=== PATIENT | female | born 1930 | race Caucasian/White ===

== ENCOUNTER 2016-03-17 19:05 | Emergency (ER) | payer MEDICARE, OTHER ==
[~2016-03-17] VITALS: Ht 157.5 cm; Wt 92.0 kg
[~2016-03-17 19:05] MED LIST: Z.0.NO CURRENT MEDS
[2016-03-17 19:24] VITALS: BP 140/73; PULSE 95; RESP 18; TEMP 98.1; O2SAT 95
--- NOTE | 2016-03-17 21:37 | PD ---
HPI Chief Complaint: Edema Time Seen by Provider: 21:21 Travel History International Travel<30 days: No Contact w/Intl Traveler<30days: No Traveled to known affect area: No History of Present Illness HPI 85-year-old female complains of bilateral lower extremities swelling and weeping fluid. Patient states that the condition started about year and a half ago. Patient has been seen by local physician for this condition. Patient was put on HCTZ for short time without much success. Patient has history hypertension and left leg DVT. Patient's on Xarelto and lisinopril. Patient denies any fever chills. Patient denies any chest pain or shortness of breath. Patient with AD hose to lower extremity occasionally. Patient denies any recent injury. PFSH Past Medical History Hx Anticoagulant Therapy: Yes (XARELTO) Blood Disorders: No Cancer: No Cardiovascular Problems: Yes (HTN) Diminished Hearing: No Endocrine: No Glaucoma: No Genitourinary: No Hypertension: Yes Immune Disorder: No Musculoskeletal: No Neurologic: No Psychiatric: No Reproductive: No Respiratory: No Sickle Cell Disease: No Past Surgical History Abdominal Surgery: Yes (lap roderick) AICD: No Arteriovenous Shunt: No Cholecystectomy: Yes Insulin Pump: No Joint Replacement: No Pacemaker: No Social History Alcohol Use: No Tobacco Use: No Substance Use: No Allergies-Medications (Allergen,Severity, Reaction): Coded Allergies: No Known Allergies (Verified , 03/17/16) Reported Meds & Prescriptions Reported Meds & Active Scripts Active Reported Xarelto (Rivaroxaban) 10 Mg Tab 10 Mg PO DAILY Lisinopril 10 Mg Tab 10 Mg PO DAILY Review of Systems General / Constitutional: No: Fever Eyes: No: Visual changes HENT: No: Headaches Cardiovascular: No: Chest Pain or Discomfort Respiratory: No: Shortness of Breath Gastrointestinal: No: Abdominal Pain Genitourinary: No: Dysuria Musculoskeletal: Positive: Edema, No: Pain Skin: No Rash Neurologic: No: Weakness Psychiatric: No: Depression Endocrine: No: Polydipsia Hematologic/Lymphatic: No: Easy Bruising Physical Exam Narrative GENERAL: Well-nourished, well-developed patient. SKIN: Warm and dry. HEAD: Normocephalic. EYES: No scleral icterus. No injection or drainage. NECK: Supple, trachea midline. No JVD or lymphadenopathy. CARDIOVASCULAR: Regular rate and rhythm without murmurs, gallops, or rubs. RESPIRATORY: Breath sounds equal bilaterally. No accessory muscle use. GASTROINTESTINAL: Abdomen soft, non-tender, nondistended. MUSCULOSKELETAL: Patient had +2 pitting edema lower extremity. Mild redness associate with the skin in the lower extremity. Clear fluid weeping out of the skin lower extremity bilaterally. BACK: Nontender without obvious deformity. No CVA tenderness. Neurologic exam normal. Data Data Last Documented VS Vital Signs Date Time Temp Pulse Resp B/P Pulse Ox O2 Delivery O2 Flow Rate FiO2 03/17/16 21:45 97 Room Air 03/17/16 21:45 85 16 158/72 03/17/16 19:24 98.1 Orders Complete Blood Count With Diff (03/17/16 21:30) Comprehensive Metabolic Panel (03/17/16 21:30) B-Type Natriuretic Peptide (03/17/16 21:30) Urinalysis - C+S If Indicated (03/17/16 21:30) Chest, Single Ap (03/17/16 21:30) Iv Access Insert/Monitor (03/17/16 21:30) Ecg Monitoring (03/17/16 21:30) Oximetry (03/17/16 21:30) Furosemide Inj (Lasix Inj) (03/17/16 22:45) Potassium Chloride (Kcl) (03/17/16 22:45) Labs Laboratory Tests Test 03/17/16 21:45 White Blood Count 10.6 TH/MM3 Red Blood Count 4.22 MIL/MM3 Hemoglobin 12.7 GM/DL Hematocrit 39.4 % Mean Corpuscular Volume 93.4 FL Mean Corpuscular Hemoglobin 30.1 PG Mean Corpuscular Hemoglobin 32.2 % Concent Red Cell Distribution Width 15.1 % Platelet Count 238 TH/MM3 Mean Platelet Volume 8.5 FL Neutrophils (%) (Auto) 80.3 % Lymphocytes (%) (Auto) 7.8 % Monocytes (%) (Auto) 8.8 % Eosinophils (%) (Auto) 0.6 % Basophils (%) (Auto) 2.5 % Neutrophils # (Auto) 8.5 TH/MM3 Lymphocytes # (Auto) 0.8 TH/MM3 Monocytes # (Auto) 0.9 TH/MM3 Eosinophils # (Auto) 0.1 TH/MM3 Basophils # (Auto) 0.3 TH/MM3 CBC Comment AUTO DIFF Sodium Level 137 MEQ/L Potassium Level 3.7 MEQ/L Chloride Level 99 MEQ/L Carbon Dioxide Level 29.2 MEQ/L Anion Gap 9 MEQ/L Blood Urea Nitrogen 19 MG/DL Creatinine 0.73 MG/DL Estimat Glomerular Filtration 75 ML/MIN Rate Random Glucose 129 MG/DL Calcium Level 9.5 MG/DL Total Bilirubin 0.8 MG/DL Aspartate Amino Transf 27 U/L (AST/SGOT) Alanine Aminotransferase 29 U/L (ALT/SGPT) Alkaline Phosphatase 68 U/L B-Type Natriuretic Peptide 197 PG/ML Total Protein 7.8 GM/DL Albumin 3.4 GM/DL [facility] Medical Decision Making Medical Screen Exam Complete: Yes Emergency Medical Condition: Yes Interpretation(s) 22 27 PM. Chest x-ray shows mild CHF. BUN 19. Creatinine 0.73. 23:17 PM. CBC with WBC 10.6. 80 neutrophil. BNP 197. Differential Diagnosis Differential diagnosis including lymphedema, cellulitis, abscess, DVT, dependent edema. Narrative Course 85-year-old female with right lower extremity edema and fluid weeping out the skin. Patient states that the symptoms started about a year and half ago. Short course of HCTZ was given in the past without success. Patient has history of DVT and on Xarelto. Diagnosis Primary Impression: Lymphedema of both lower extremities Patient Instructions: General Instructions Additional Instructions: Keep legs elevated. AD hose stocking. Take Lasix as directed. Follow-up with personal physician in several days for electrolyte check. Return if worse. Med/Other Pt SpecificInfo: Prescription(s) given Scripts Sulfamethoxazole-Trimethoprim (Bactrim DS)800-160 Mg Tab1 Tab PO BID #14 TAB Ref 0 Prov:Kuldip Robison MD 03/17/16 Potassium Chloride ER (Potassium Chloride CR)10 Meq Tab10 Meq PO DAILY #7 TAB Prov:Kuldip Robison MD 03/17/16 Furosemide (Lasix)20 Mg Tab20 Mg PO DAILY #10 TAB Ref 0 Prov:Kuldip Robison MD 03/17/16 Disposition: 01 DISCHARGE HOME Condition: Stable Kuldip Robison MD Mar 17, 2016 21:37
[2016-03-17 21:45] VITALS: BP 158/72; PULSE 85; RESP 16; O2SAT 97
[2016-03-17 22:12] LABS: CHLORIDE 99 MEQ/L (98-107); POTASSIUM 3.7 MEQ/L (3.5-5.1); SODIUM (NA) 137 MEQ/L (136-145)
[2016-03-17 22:15] LABS: ANION GAP 9 MEQ/L (5-15); BICARBONATE 29.2 MEQ/L (21.0-32.0)
--- NOTE | 2016-03-17 22:15 | RADHPO ---
EXAM DATE/TIME: 03/17/2016 22:02 [facility] COMPARISON: No previous studies available for comparison. INDICATIONS : Short of breath MEDICAL HISTORY : Lower extremity edema SURGICAL HISTORY : Unknown ENCOUNTER: Initial ACUITY: 1 day PAIN SCORE: 0/10 LOCATION: Bilateral chest FINDINGS: Mild consolidation and small effusions seen of both bases. Heart size upper limits of normal to mildl y enlarged. No pneumothorax. Right greater than left chronic appearing arthropathy seen of the shoulders. CONCLUSION: Mild failure. Adi Javier MD on March 17, 2016 at 22:13 Board Certified Radiologist. This report was verified electronically.
[2016-03-17 22:16] LABS: BLOOD UREA NITROGEN 19 MG/DL (7-18)
[2016-03-17 22:19] LABS: ALT (GPT) 29 U/L (10-53); AST (GOT) 27 U/L (15-37); GLOMERULAR FILTRATION RATE 75 ML/MIN (>89)
[2016-03-17 22:20] LABS: TOTAL BILIRUBIN ADULT 0.8 MG/DL (0.2-1.0)
[2016-03-17 22:21] LABS: ALKALINE PHOSPHATASE 68 U/L (45-117)
[2016-03-17 22:38] LABS: AUTOMATED NEUTROPHIL # 8.5 TH/MM3 (1.8-7.7); BASOPHIL # 0.3 TH/MM3 (0-0.2); BASOPHIL % 2.5 % (0.0-2.0); EOSINOPHIL # 0.1 TH/MM3 (0-0.4); EOSINOPHIL % 0.6 % (0.0-4.0); HEMATOCRIT 39.4 % (35.0-46.0); LYMPH % 7.8 % (9.0-44.0); LYMPHOCYTE # 0.8 TH/MM3 (1.0-4.8); MEAN CELL VOLUME 93.4 FL (80.0-100.0); MEAN CORPUSCULAR HEMOGLOBIN 30.1 PG (27.0-34.0); MEAN CORPUSCULAR HGB CONC 32.2 % (32.0-36.0); MONO % 8.8 % (0.0-8.0); NEUT % 80.3 % (16.0-70.0); PLATELET COUNT 238 TH/MM3 (150-450); RED BLOOD COUNT 4.22 MIL/MM3 (4.00-5.30); RED CELL DISTRIBUTION WIDTH 15.1 % (11.6-17.2); WHITE BLOOD COUNT 10.6 TH/MM3 (4.0-11.0)
[2016-03-17] MEDS ORDERED: POTASSIUM CHLORIDE 20 MEQ CONTROLLED RELEASE TAB PO ONE (22:45)
[2016-03-17] MEDS ORDERED: FUROSEMIDE 20 MG/2 ML VIAL IV PUSH ONE (22:45)
[2016-03-17 22:48] LABS: HEMO FLAGS AUTO DIFF
[2016-03-17] MEDS ORDERED: XARE10TA PO (22:50)
[2016-03-17] MEDS ORDERED: LISI10TA3 PO (22:50)
[2016-03-17 23:19] LABS: PLATELET ESTIMATE SMEAR NORMAL (NORMAL); PLATELET MORPHOLOGY NORMAL (NORMAL); SCAN/DIFF AUTO DIFF CONFIRMED
[2016-03-17] MEDS ORDERED: FURO1TAB62 PO (23:25)
[2016-03-17] MEDS ORDERED: BACT800T5 PO (23:26)
[2016-03-17] MEDS ORDERED: POTA10TA8 PO (23:26)
[2016-03-18 00:54] VITALS: BP 157/72
== END 2016-03-18 00:56 | disposition home or self-care (01) ==
LOC: PHED 19:05
DX: R60.0 Localized edema (principal); Z79.01 Long term (current) use of anticoagulants; I10 Essential (primary) hypertension
CPT/HCPCS: 71010; 80053; 83880; 85025; 96374; 99284; J1940

== ENCOUNTER 2016-08-19 12:35 | Emergency (ER) | payer OTHER ==
[~2016-08-19] VITALS: Ht 157.5 cm; Wt 82.6 kg
[~2016-08-19 12:35] MED LIST changes: +BACT800T5 PO; +FURO1TAB62 PO; +LISI10TA3 PO; +POTA10TA8 PO; +XARE10TA PO; -Z.0.NO CURRENT MEDS
[2016-08-19 12:39] VITALS: BP 138/65; PULSE 99; RESP 16; TEMP 98; O2SAT 97
[2016-08-19 13:05] VITALS: RESP 16; O2SAT 97
[2016-08-19] MEDS ORDERED: CALC-187 PO (13:10)
[2016-08-19] MEDS ORDERED: FURO1TAB62 PO (13:10)
[2016-08-19] MEDS ORDERED: MULT1TAB46 PO (13:10)
[2016-08-19] MEDS ORDERED: SIMV20TA PO (13:10)
[2016-08-19] MEDS ORDERED: XARE20TA PO (13:10)
[2016-08-19] MEDS ORDERED: SODIUM CHLORIDE 0.9% FLUSH 10 ML FLUSH IV FLUSH PRN (13:15)
--- NOTE | 2016-08-19 13:17 | PD ---
HPI Chief Complaint: Pain: Acute or Chronic Time Seen by Provider: 13:02 Travel History International Travel<30 days: No Contact w/Intl Traveler<30days: No Traveled to known affect area: No History of Present Illness HPI 85-year-old female with history of bilateral lower extremity lymphedema, A. fib , DVT, on Xarelto, here with daughter for evaluation of left thigh pain and ecchymosis. 3 nights ago the patient reports feeling a pop in her left thigh. The next day she noticed the area of ecchymosis which seems to be getting larger. Pain in her left thigh is mild to moderate, worse with movement and palpation, completely resolves with rest. She is able to ambulate as usual. She reports history of limited range of motion and strength in the left leg. No other injuries. No chest pain or dyspnea. PFSH Past Medical History Hx Anticoagulant Therapy: Yes (XARELTO) Atrial Fibrillation: Yes Blood Disorders: No Cancer: No Cardiovascular Problems: Yes (CHOL) High Cholesterol: Yes Congestive Heart Failure: Yes Diabetes: No Diminished Hearing: No Deep Vein Thrombosis: Yes (left leg-calf area 2 yrs ago, Hx of PE) Endocrine: No Gastrointestinal Disorders: No Glaucoma: No Genitourinary: No Hypertension: Yes Immune Disorder: No Medical other: Yes (chronic edema to legs and feet) Musculoskeletal: No Neurologic: No Psychiatric: No Reproductive: No Respiratory: No Renal Failure: No (decreased renal function) Sickle Cell Disease: No Tetanus Vaccination: > 5 Years Influenza Vaccination: No ?: Not Menopausal: Yes Past Surgical History Abdominal Surgery: Yes (lap roderick) AICD: No Arteriovenous Shunt: No Cholecystectomy: Yes Insulin Pump: No Joint Replacement: No Pacemaker: No Other Surgery: Yes Social History Alcohol Use: No Tobacco Use: No Substance Use: No Allergies-Medications (Allergen,Severity, Reaction): Coded Allergies: No Known Allergies (Verified , 08/19/16) Reported Meds & Prescriptions Reported Meds & Active Scripts Active Reported Potassium Chloride ER (Potassium Chloride) 10 Meq Cap 10 Meq PO DAILY PRN Multi Vitamin Daily (Multiple Vitamin) 1 Tab Tab 1 Tab PO DAILY Calcium 500/Vitamin D3 (Calcium Carbonate-Cholecalciferol) Unknown Strength Tab Unknown Dose PO DAILY Simvastatin 20 Mg Tab 20 Mg PO HS Xarelto (Rivaroxaban) 20 Mg Tab 20 Mg PO HS Lasix (Furosemide) 20 Mg Tab 20 Mg PO DAILY PRN Lisinopril 10 Mg Tab 10 Mg PO DAILY Review of Systems Except as stated in HPI: all other systems reviewed are Neg Physical Exam Narrative GENERAL: Well-developed, well-nourished, awake, alert, comfortable, no acute distress. SKIN: Focused skin assessment warm/dry. Mid medial/posterior thigh with area of ecchymosis without induration. HEAD: Atraumatic. Normocephalic. EYES: Pupils equal and round. No scleral icterus. No injection or drainage. ENT: Mucous membranes pink and moist. NECK: Trachea midline. No JVD. CARDIOVASCULAR: Regular rate and rhythm. Bilateral dorsalis pedis pulses are brisk and equal. RESPIRATORY: No accessory muscle use. Clear to auscultation. Breath sounds equal bilaterally. MUSCULOSKELETAL: No obvious deformities. No clubbing. No cyanosis. Significant bilateral lower extremity nonpitting edema with skin exam as above. No open wounds or weeping. No warmth or erythema. Normal range of passive motion in flexion and extension of bilateral lower extremities. Normal range of active motion in the right lower extremity. Somewhat limited range of motion in left lower extremity which the patient states is usual for her. NEUROLOGICAL: Awake and alert. No obvious cranial nerve deficits. Motor grossly within normal limits. Normal speech. PSYCHIATRIC: Appropriate mood and affect; insight and judgment normal. Data Data Last Documented VS Vital Signs Date Time Temp Pulse Resp B/P Pulse Ox O2 Delivery O2 Flow Rate FiO2 08/19/16 13:45 98 16 136/56 97 Room Air 08/19/16 12:39 98.0 Orders Basic Metabolic Panel (Bmp) (08/19/16 13:14) Complete Blood Count With Diff (08/19/16 13:14) Prothrombin Time / Inr (Pt) (08/19/16 13:14) Act Partial Throm Time (Ptt) (08/19/16 13:14) Iv Access Insert/Monitor (08/19/16 13:14) Ecg Monitoring (08/19/16 13:14) Oximetry (08/19/16 13:14) Sodium Chloride 0.9% Flush (Ns Flush) (08/19/16 13:15) Femur (Ap & Lat/2vws) (08/19/16 ) Labs Laboratory Tests Test 08/19/16 13:40 White Blood Count 9.3 TH/MM3 Red Blood Count 3.58 MIL/MM3 Hemoglobin 11.1 GM/DL Hematocrit 33.0 % Mean Corpuscular Volume 92.3 FL Mean Corpuscular Hemoglobin 31.0 PG Mean Corpuscular Hemoglobin 33.6 % Concent Red Cell Distribution Width 13.8 % Platelet Count 160 TH/MM3 Mean Platelet Volume 8.7 FL Neutrophils (%) (Auto) 78.2 % Lymphocytes (%) (Auto) 7.6 % Monocytes (%) (Auto) 12.8 % Eosinophils (%) (Auto) 0.5 % Basophils (%) (Auto) 0.9 % Neutrophils # (Auto) 7.3 TH/MM3 Lymphocytes # (Auto) 0.7 TH/MM3 Monocytes # (Auto) 1.2 TH/MM3 Eosinophils # (Auto) 0.0 TH/MM3 Basophils # (Auto) 0.1 TH/MM3 CBC Comment DIFF FINAL Differential Comment Prothrombin Time 15.2 SEC Prothromb Time International 1.4 RATIO Ratio Activated Partial 32.8 SEC Thromboplast Time Sodium Level 136 MEQ/L Potassium Level 3.7 MEQ/L Chloride Level 99 MEQ/L Carbon Dioxide Level 25.3 MEQ/L Anion Gap 12 MEQ/L Blood Urea Nitrogen 18 MG/DL Creatinine 0.66 MG/DL Estimat Glomerular Filtration 85 ML/MIN Rate Random Glucose 110 MG/DL Calcium Level 8.8 MG/DL MDM Medical Decision Making Medical Screen Exam Complete: Yes Emergency Medical Condition: Yes Medical Record Reviewed: Yes Differential Diagnosis Ecchymosis, hematoma, muscular strain, anemia Narrative Course Vital signs reviewed. CBC shows WBC 9.3, hemoglobin 11.1, hematocrit 33, platelets 160. CBC and March of this year showed a hemoglobin of 2.7, hematocrit 39.4. BMP is unremarkable. PT is 15.2, PTT is 32.8, INR is 1.4. Left femur x-ray: No acute fracture. Prominent degenerative changes of the knee. Patient and the patient's daughter were made aware of all findings. The patient is resting comfortably. She likely has a small hematoma in her left thigh from a muscular strain/tear. There brisk bilateral dorsalis pedis pulses. No signs or symptoms of compartment syndrome. All compartments in left thigh are supple. Patient prefers to go home, and her daughter will take care of her at home. I had my shelter case manager discussed with the patient and the patient's daughter options for visiting home health. I offered to give the patient prescription for pain medication, however the patient declined, stating that she would like to use Tylenol for her pain. Patient is stable for discharge home with outpatient follow-up with her primary care physician this week. She was informed on when to return to the emergency department. She verbalizes understanding and agreement with plan. Diagnosis Primary Impression: Left thigh pain Additional Impression: Ecchymosis Referrals: Primary Care Physician 3 days Additional Instructions: Follow-up with your primary care physician this week. Return to the emergency department for worsening symptoms or any other concerns. Disposition: 01 DISCHARGE HOME Condition: Stable Tommy Cameron MD Aug 19, 2016 13:17
[2016-08-19] MEDS ORDERED: POTA10CA PO (13:20)
[2016-08-19 13:45] VITALS: BP 136/56; PULSE 98; RESP 16; O2SAT 97
[2016-08-19 13:47] LABS: AUTOMATED NEUTROPHIL # 7.3 TH/MM3 (1.8-7.7); BASOPHIL # 0.1 TH/MM3 (0-0.2); BASOPHIL % 0.9 % (0.0-2.0); EOSINOPHIL % 0.5 % (0.0-4.0); HEMO FLAGS DIFF FINAL; LYMPH % 7.6 % (9.0-44.0); LYMPHOCYTE # 0.7 TH/MM3 (1.0-4.8); MEAN CELL VOLUME 92.3 FL (80.0-100.0); MEAN CORPUSCULAR HGB CONC 33.6 % (32.0-36.0); MONO % 12.8 % (0.0-8.0); NEUT % 78.2 % (16.0-70.0); PLATELET COUNT 160 TH/MM3 (150-450); RED BLOOD COUNT 3.58 MIL/MM3 (4.00-5.30); RED CELL DISTRIBUTION WIDTH 13.8 % (11.6-17.2); WHITE BLOOD COUNT 9.3 TH/MM3 (4.0-11.0)
--- NOTE | 2016-08-19 13:47 | RADHPO ---
EXAM DATE/TIME: 08/19/2016 13:21 [facility] COMPARISON: No previous studies available for comparison. INDICATIONS : Left thigh pain; no known injury to leg. Patient states felt a pop when getting into bed 3 days ago. MEDICAL HISTORY : Deep venous thrombosis. SURGICAL HISTORY : None. ENCOUNTER: Initial ACUITY: 3 days PAIN SCORE: 10/10 LOCATION: Left femur. FINDINGS: Two view examination of the left femur demonstrates no evidence of fracture or dislocation. Degenerat tess changes of the knee. Calcified leiomyoma. Bony mineralization is normal. The soft tissue structu res are intact. CONCLUSION: No acute fracture. Prominent degenerative changes of the knee. Aneudy Lawson MD on August 19, 2016 at 13:44 Board Certified Radiologist. This report was verified electronically.
[2016-08-19 13:55] LABS: POTASSIUM 3.7 MEQ/L (3.5-5.1)
[2016-08-19 13:58] LABS: BICARBONATE 25.3 MEQ/L (21.0-32.0)
[2016-08-19 13:59] LABS: APTT (PATIENT) 32.8 SEC (24.3-30.1); INTERNATIONAL NORMALIZED RATIO 1.4 RATIO; PROTHROMBIN TIME - PATIENT 15.2 SEC (9.8-11.6)
== END 2016-08-19 14:51 | disposition home or self-care (01) ==
LOC: PHED 12:35
DX: M79.652 Pain in left thigh (principal); M79.81 Nontraumatic hematoma of soft tissue; I48.91 Unspecified atrial fibrillation; I10 Essential (primary) hypertension; E78.00 Pure hypercholesterolemia, unspecified; Z86.718 Personal history of other venous thrombosis and embolism; Z79.01 Long term (current) use of anticoagulants; Z86.711 Personal history of pulmonary embolism
CPT/HCPCS: 73552; 80048; 85025; 85610; 85730; 99284

== ENCOUNTER 2017-03-30 16:40 | Observation (INO) | payer OTHER ==
[~2017-03-30] VITALS: Ht 157.5 cm; Wt 89.7 kg
[~2017-03-30 16:40] MED LIST changes: -BACT800T5 PO; +CALC-187 PO; +MULT1TAB46 PO; +POTA10CA PO; -POTA10TA8 PO; +SIMV20TA PO; -XARE10TA PO; +XARE20TA PO
[2017-03-30 17:00] VITALS: BP 142/97; PULSE 87; RESP 16; TEMP 98.2; O2SAT 95
--- NOTE | 2017-03-30 17:01 | PD ---
HPI Chief Complaint: Generalized weakness Time Seen by Provider: 16:46 Travel History International Travel<30 days: No Contact w/Intl Traveler<30days: No History of Present Illness HPI 86yo F with PMH of afib, DVT on xarelto, bilateral lower extremity lymphadema presents to the ED with c/o generalized weakness for 10 days. Said she usually uses a walker but has been having more difficulty walking because her legs feels weak. Pt was getting out of the bathroom and her walker was stuck at the door and she pushed too hard and fell backwards. She said she did hit her head on the door but denies any LOC or headache. Denies any chest pain, sob, n/v, abdominal pain, decreased sensation. Said her legs have been more swollen in the last 10 days as well. PFSH Past Medical History Hx Anticoagulant Therapy: Yes (XARELTO) Atrial Fibrillation: Yes Blood Disorders: No Cancer: No Cardiovascular Problems: Yes (CHOL) High Cholesterol: Yes Congestive Heart Failure: Yes Diabetes: No Diminished Hearing: No Deep Vein Thrombosis: Yes (left leg-calf area 2 yrs ago, Hx of PE) Endocrine: No Gastrointestinal Disorders: No Glaucoma: No Genitourinary: No Hypertension: Yes Immune Disorder: No Musculoskeletal: No Neurologic: No Psychiatric: No Reproductive: No Respiratory: No Renal Failure: No (decreased renal function) Sickle Cell Disease: No Menopausal: Yes Past Surgical History Abdominal Surgery: Yes (lap roderick) AICD: No Arteriovenous Shunt: No Cholecystectomy: Yes Insulin Pump: No Joint Replacement: No Pacemaker: No Other Surgery: Yes Social History Alcohol Use: No Tobacco Use: No Substance Use: No Allergies-Medications (Allergen,Severity, Reaction): Coded Allergies: No Known Allergies (Verified , 08/19/16) Reported Meds & Prescriptions Reported Meds & Active Scripts Active Reported Potassium Chloride ER (Potassium Chloride) 10 Meq Cap 10 Meq PO DAILY PRN Multi Vitamin Daily (Multiple Vitamin) 1 Tab Tab 1 Tab PO DAILY Calcium 500/Vitamin D3 (Calcium Carbonate-Cholecalciferol) Unknown Strength Tab Unknown Dose PO DAILY Simvastatin 20 Mg Tab 20 Mg PO HS Xarelto (Rivaroxaban) 20 Mg Tab 20 Mg PO HS Lasix (Furosemide) 20 Mg Tab 20 Mg PO DAILY PRN Lisinopril 10 Mg Tab 10 Mg PO DAILY Review of Systems Except as stated in HPI: all other systems reviewed are Neg Physical Exam Narrative GENERAL: 86yo F not in distress. SKIN: Focused skin assessment warm/dry. HEAD: Atraumatic. Normocephalic. EYES: Pupils equal and round at 3mm bilaterally. EOMI. ENT: No nasal bleeding or discharge. Mucous membranes pink and moist. NECK: No midline cervical spine ttp. CARDIOVASCULAR: Regular rate and rhythm. No murmur appreciated. RESPIRATORY: No accessory muscle use. Mild crackle base of right lung. GASTROINTESTINAL: Abdomen soft, non-tender, nondistended. BACK: No ttp thoracic or lumbar spine. MUSCULOSKELETAL: +Bilateral lower extremity edema. NEUROLOGICAL: Awake and alert. No obvious cranial nerve deficits. Motor grossly within normal limits. Normal speech. PSYCHIATRIC: Appropriate mood and affect; insight and judgment normal. Data Data Last Documented VS Vital Signs Date Time Temp Pulse Resp B/P (MAP) Pulse Ox O2 Delivery O2 Flow Rate FiO2 03/30/17 18:00 94 16 155/74 (101) 95 Room Air 03/30/17 17:00 98.2 Orders Orders Electrocardiogram (03/30/17 16:56) Basic Metabolic Panel (Bmp) (03/30/17 16:56) Complete Blood Count With Diff (03/30/17 16:56) Magnesium (Mg) (03/30/17 16:56) B-Type Natriuretic Peptide (03/30/17 16:56) Troponin I (03/30/17 16:56) Act Partial Throm Time (Ptt) (03/30/17 16:56) Prothrombin Time / Inr (Pt) (03/30/17 16:56) Urinalysis - C+S If Indicated (03/30/17 16:56) Ct Brain W/O Iv Contrast(Rout) (03/30/17 16:56) Ct Cerv Spine W/O Contrast (03/30/17 16:56) Influenzae A/B Antigen (03/30/17 16:56) Sodium Chlorid 0.9% 500 Ml Inj (Ns 500 M (03/30/17 18:15) Urine Culture (03/30/17 19:50) Ceftriaxone Inj (Rocephin Inj) (03/30/17 20:30) Labs Laboratory Tests Test 03/30/17 17:20 03/30/17 19:50 White Blood Count 7.0 TH/MM3 Red Blood Count 3.97 MIL/MM3 Hemoglobin 12.2 GM/DL Hematocrit 36.9 % Mean Corpuscular Volume 93.0 FL Mean Corpuscular Hemoglobin 30.7 PG Mean Corpuscular Hemoglobin Concent 33.0 % Red Cell Distribution Width 13.6 % Platelet Count 164 TH/MM3 Mean Platelet Volume 7.9 FL Neutrophils (%) (Auto) 82.5 % Lymphocytes (%) (Auto) 8.6 % Monocytes (%) (Auto) 7.9 % Eosinophils (%) (Auto) 0.3 % Basophils (%) (Auto) 0.7 % Neutrophils # (Auto) 5.8 TH/MM3 Lymphocytes # (Auto) 0.6 TH/MM3 Monocytes # (Auto) 0.6 TH/MM3 Eosinophils # (Auto) 0.0 TH/MM3 Basophils # (Auto) 0.0 TH/MM3 CBC Comment DIFF FINAL Differential Comment Prothrombin Time 14.7 SEC Prothromb Time International Ratio 1.5 RATIO Activated Partial Thromboplast Time 33.6 SEC Blood Urea Nitrogen 23 MG/DL Creatinine 0.73 MG/DL Random Glucose 113 MG/DL Calcium Level 9.0 MG/DL Magnesium Level 2.0 MG/DL Sodium Level 127 MEQ/L Potassium Level 4.0 MEQ/L Chloride Level 93 MEQ/L Carbon Dioxide Level 26.0 MEQ/L Anion Gap 8 MEQ/L Estimat Glomerular Filtration Rate 75 ML/MIN Troponin I 0.03 NG/ML B-Type Natriuretic Peptide 591 PG/ML Urine Color YELLOW Urine Turbidity MOD Urine pH 6.0 Urine Specific [place] 1.024 Urine Protein TRACE mg/dL Urine Glucose (UA) NEG mg/dL Urine Ketones 15 mg/dL Urine Occult Blood LARGE Urine Nitrite NEG Urine Bilirubin NEG Urine Leukocyte Esterase SMALL Urine RBC 0-3 /hpf Urine WBC 9-14 /hpf Urine Squamous Epithelial Cells > 8 /hpf Urine Amorphous Sediment LARGE Urine Bacteria MOD /hpf Microscopic Urinalysis Comment CULTURE INDICATED MDM Medical Decision Making Medical Screen Exam Complete: Yes Emergency Medical Condition: Yes Interpretation(s) EKG: Afib at 88bpm. Normal axis. No ST segment elevation or depression. Differential Diagnosis Failure to thrive vs. dehydration vs. electrolyte abnormality vs. ICH vs. UTI Narrative Course 86yo F with worsening generalized weakness. Labs reviewed, no leukocytosis. H/ H normal. Mild hyponatremia at 127. Hypochloremia at 93. BUN elevated at 23. BUN/creatinine >2:1. Pt was given NS IVF 500cc. Pt denies any sob. or chest pain. Troponin negative at 0.03. BNP is elevated at 591. UA showed large blood. WBC 9-14. Pt given ceftriaxone. CT cspine showed no acute fracture. CT brain negative. Pt said after she fell today, she was not able to get up. She said normally she can walk with her walker but feeling very weak for the last 10 days. Pt does live with her daughter but said she works all the time and she normally is able to walk herself. Influenza negative. Will admit for observation for UTI and PT. Diagnosis Primary Impression: UTI (urinary tract infection) Qualified Codes: N39.0 - Urinary tract infection, site not specified; R31.9 - Hematuria, unspecified Admitting Information Admitting Physician Requests: Observation Loren Friedman DO Mar 30, 2017 17:01
[2017-03-30 17:51] LABS: AUTOMATED NEUTROPHIL # 5.8 TH/MM3 (1.8-7.7); BASOPHIL % 0.7 % (0.0-2.0); EOSINOPHIL % 0.3 % (0.0-4.0); HEMATOCRIT 36.9 % (35.0-46.0); HEMOGLOBIN 12.2 GM/DL (11.6-15.3); LYMPH % 8.6 % (9.0-44.0); LYMPHOCYTE # 0.6 TH/MM3 (1.0-4.8); MEAN CORPUSCULAR HEMOGLOBIN 30.7 PG (27.0-34.0); MEAN PLATELET VOLUME 7.9 FL (7.0-11.0); MONO % 7.9 % (0.0-8.0); MONOCYTE # 0.6 TH/MM3 (0-0.9); NEUT % 82.5 % (16.0-70.0); PLATELET COUNT 164 TH/MM3 (150-450); RED BLOOD COUNT 3.97 MIL/MM3 (4.00-5.30); RED CELL DISTRIBUTION WIDTH 13.6 % (11.6-17.2)
[2017-03-30 17:54] LABS: INTERNATIONAL NORMALIZED RATIO 1.5 RATIO; PROTHROMBIN TIME - PATIENT 14.7 SEC (9.8-11.6)
[2017-03-30 17:56] LABS: CREATININE 0.73 MG/DL (0.50-1.00)
[2017-03-30 18:00] VITALS: BP 155/74; PULSE 94; RESP 16; O2SAT 95
[2017-03-30 18:01] LABS: TROPONIN I 0.03 NG/ML (0.02-0.05)
--- NOTE | 2017-03-30 18:14 | RADRPT ---
EXAM DATE/TIME: 03/30/2017 17:46 [facility] COMPARISON: No previous studies available for comparison. INDICATIONS : Generalized weakness. Fall. RADIATION DOSE: 61.16 CTDIvol (mGy) MEDICAL HISTORY : Deep venous thrombosis. Congestive heart failure. Hypertension. SURGICAL HISTORY : Cholecystectomy. ENCOUNTER: Initial ACUITY: 1 day PAIN SCALE: 0/10 LOCATION: cranial TECHNIQUE: Multiple contiguous axial images were obtained of the head. Using automated exposure control and adj ustment of the mA and/or kV according to patient size, radiation dose was kept as low as reasonably a chievable to obtain optimal diagnostic quality images. DICOM format image data is available electro nically for review and comparison. FINDINGS: CEREBRUM: The ventricles are normal for age. No evidence of midline shift, mass lesion, hemorrhage or acute in farction. No extra-axial fluid collections are seen. POSTERIOR FOSSA: The cerebellum and brainstem are intact. The 4th ventricle is midline. The cerebellopontine angle i s unremarkable. EXTRACRANIAL: The visualized portion of the orbits is intact. SKULL: The calvaria is intact. No evidence of skull fracture. CONCLUSION: No acute intracranial abnormality. Alex Akers MD on March 30, 2017 at 18:10 Board Certified Radiologist. This report was verified electronically.
[2017-03-30] MEDS ORDERED: SODIUM CHLORID 0.9% 500 ML INJ 500 ML IV ONE (18:15)
--- NOTE | 2017-03-30 18:39 | RADRPT ---
EXAM DATE/TIME: 03/30/2017 17:46 [place] COMPARISON: No previous studies available for comparison. INDICATIONS : Generalized weakness. Fall. RADIATION DOSE: 25.47 CTDIvol (mGy) MEDICAL HISTORY : Deep venous thrombosis. Congestive heart failure. Hypertension. SURGICAL HISTORY : Cholecystectomy. ENCOUNTER: Initial ACUITY: 1 day PAIN SCALE: 0/10 LOCATION: neck TECHNIQUE: Volumetric scanning of the cervical spine was performed. Multiplanar reconstructions in the sagittal, coronal and oblique axial planes were performed. Using automated exposure control and adjustment o f the mA and/or kV according to patient size, radiation dose was kept as low as reasonably achievable to obtain optimal diagnostic quality images. DICOM format image data is available electronically f or review and comparison. FINDINGS: There is no acute fracture or prevertebral soft tissue swelling. Diffuse cervical spondylosis is note d from C2 through T1. There is straightening of the normal cervical lordosis. Moderate bilateral fora david narrowing is noted from C2 through C7. There is grade I anterolisthesis of C4 in relation to C5 and C7 in relation to T1. The bony relation in alignment between C1 and C2 is well maintained. A rig ht pleural effusion is noted. A 2 cm left thyroid nodule is noted. CONCLUSION: 1. No acute fracture or prevertebral soft tissue swelling. 2. Moderate bilateral foraminal narrowing from C2 through C7. 3. Grade I anterolisthesis of C4 in relation to C5 and C7 in relation to T1. 4. Diffuse cervical spondylosis. 5. Right pleural effusion. 6. 2 cm left thyroid nodule. Alex Akers MD on March 30, 2017 at 18:31 Board Certified Radiologist. This report was verified electronically.
[2017-03-30 19:00] VITALS: BP 162/84; PULSE 83; RESP 18; O2SAT 94
[2017-03-30 20:00] LABS: BILIRUBIN, URINE NEG (NEG); BLOOD, URINE LARGE (NEG); GLUCOSE,URINE NEG (NEG); KETONE, URINE 15 mg/dL (NEG); NITRITE,URINE NEG (NEG); URINE LEUKOCYTE ESTERASE SMALL (NEG)
[2017-03-30 20:13] LABS: SQUAMOUS EPITHELIAL CELL URINE > 8 /hpf (0-5); URINE COLOR YELLOW (YELLW/STRAW)
[2017-03-30 20:15] VITALS: BP 135/79; PULSE 85; RESP 18; O2SAT 93
[2017-03-30 20:15] LABS: AMORPHOUS SEDIMENT, URINE LARGE; BACTERIA, URINE MOD /hpf; RBC, URINE 0-3 /hpf (0-3)
[2017-03-30] MEDS ORDERED: cefTRIAXone INJ 1,000 MG in SODIUM CHLORIDE 0.9% INJ 100 ML IV ONE (20:30)
[2017-03-30] MEDS ORDERED: ACETAMINOPHEN 325 MG TAB PO PRN (20:45)
[2017-03-30] MEDS ORDERED: SODIUM CHLORIDE 0.9% FLUSH 10 ML FLUSH IV FLUSH PRN (20:45)
[2017-03-30] MEDS ORDERED: MAGNESIUM HYDROXIDE SUSP 30 ML CUP PO PRN (21:00)
[2017-03-30] MEDS ORDERED: ACETAMINOPHEN/HYDROcodone 325 MG/5 MG TAB PO PRN (21:00)
[2017-03-30] MEDS ORDERED: BISACODYL 10 MG SUPP RECTAL PRN (21:00)
[2017-03-30] MEDS ORDERED: LACTULOSE SYRUP 20 GM/30 ML CUP PO PRN (21:00)
[2017-03-30] MEDS ORDERED: ONDANSETRON HCL 4 MG/2 ML VIAL IVP PRN (21:00)
[2017-03-30] MEDS ORDERED: ACETAMINOPHEN/HYDROcodone 325 MG/10 MG TAB PO PRN (21:00)
[2017-03-30] MEDS ORDERED: SENNOSIDES 8.6 MG TAB PO PRN (21:00)
[2017-03-30] MEDS: PRAVASTATIN SOD 40 MG TAB PO SCH (21:26)
[2017-03-30] MEDS: DOCUSATE SODIUM 50 MG/SENNA 8.6 MG TAB PO SCH (21:26)
[2017-03-30 21:30] VITALS: BP 144/74; PULSE 82; RESP 18; O2SAT 94
[2017-03-30] MEDS: RIVAROXABAN 20 MG TAB PO SCH (22:36)
[2017-03-30] MEDS: SODIUM CHLORIDE 0.9% FLUSH 10 ML FLUSH IV FLUSH SCH (22:36)
[2017-03-30 22:45] VITALS: BP 159/85
[2017-03-31] VITALS (7 sets, daily range): BP systolic 130–166; BP diastolic 63–99; PULSE 77–89; RESP 18–22; TEMP 96.7–98.6; O2SAT 92–96
[2017-03-31 07:27] LABS: AUTOMATED NEUTROPHIL # 4.9 TH/MM3 (1.8-7.7); BASOPHIL % 0.5 % (0.0-2.0); EOSINOPHIL % 0.5 % (0.0-4.0); HEMATOCRIT 36.7 % (35.0-46.0); HEMOGLOBIN 11.8 GM/DL (11.6-15.3); LYMPHOCYTE # 0.7 TH/MM3 (1.0-4.8); MEAN CELL VOLUME 93.5 FL (80.0-100.0); MEAN CORPUSCULAR HGB CONC 32.1 % (32.0-36.0); MEAN PLATELET VOLUME 8.6 FL (7.0-11.0); MONO % 10.9 % (0.0-8.0); MONOCYTE # 0.7 TH/MM3 (0-0.9); NEUT % 77.1 % (16.0-70.0); PLATELET COUNT 158 TH/MM3 (150-450); RED BLOOD COUNT 3.93 MIL/MM3 (4.00-5.30); RED CELL DISTRIBUTION WIDTH 13.5 % (11.6-17.2); WHITE BLOOD COUNT 6.3 TH/MM3 (4.0-11.0)
[2017-03-31 07:38] LABS: CHLORIDE 96 MEQ/L (98-107); SODIUM (NA) 128 MEQ/L (136-145)
[2017-03-31 07:39] LABS: INTERNATIONAL NORMALIZED RATIO 1.5 RATIO; PROTHROMBIN TIME - PATIENT 14.9 SEC (9.8-11.6)
[2017-03-31 07:42] LABS: ALBUMIN 3.6 GM/DL (3.4-5.0); BICARBONATE 24.6 MEQ/L (21.0-32.0); BLOOD UREA NITROGEN 18 MG/DL (7-18); GLUCOSE,RANDOM 103 MG/DL (74-106)
[2017-03-31 07:43] LABS: CALCIUM 8.6 MG/DL (8.5-10.1)
[2017-03-31 07:45] LABS: ALT (GPT) 29 U/L (10-53); AST (GOT) 32 U/L (15-37); CREATININE 0.68 MG/DL (0.50-1.00); GLOMERULAR FILTRATION RATE 82 ML/MIN (>89)
[2017-03-31 07:47] LABS: TOTAL PROTEIN 7.2 GM/DL (6.4-8.2)
[2017-03-31 07:48] LABS: ALKALINE PHOSPHATASE 75 U/L (45-117)
[2017-03-31] MEDS: DOCUSATE SODIUM 50 MG/SENNA 8.6 MG TAB PO SCH ×2 (09:32→21:00)
[2017-03-31] MEDS: FUROSEMIDE 20 MG TAB PO SCH ×2 (09:32→17:16)
[2017-03-31] MEDS: SODIUM CHLORIDE 0.9% FLUSH 10 ML FLUSH IV FLUSH SCH ×2 (09:33→22:15)
--- NOTE | 2017-03-31 11:42 | HHI.HP ---
[facility] Primary Care Physician Christie Griffith MD Admission Diagnosis UTI, generalized weakness Diagnoses: (1) Fall at home Diagnosis: Principal (2) Generalized weakness Diagnosis: Principal (3) UTI (urinary tract infection) Diagnosis: Principal Chief Complaint: Follow home with progressive weakness Travel History International Travel<30 Days: No Contact w/Intl Traveler <30 Da: No Traveled to Known Affected Are: No History of Present Illness Written by Toy Lorenz, acting as scribe for Dr. Li on 03/31/17 at 11: 33. 86-year-old rather pleasant female with known history of hypertension , hyperlipidemia, history of DVT, pulmonary emboli who presented to the hospital because of fall at home. Patient states that her the last 10 days she has been having trouble walking with weakness in her lower extremities. She is having difficulty getting out of bed because of her physical status. She did go to the bathroom yesterday and when she was walking out of the bathroom with her walker, the walker got hung up on the door and when she went to push the door she fell backwards. She denied any loss of consciousness, head injury. Patient indicates [facility] came and evaluated her and recommended bringing her to the hospital for further evaluation. Patient did have workup done emergency department and found to have urinary tract infection, elevated BNP, hyponatremia. Because of the findings is recommended patient be observed in the hospital for further recommendations. Patient indicates that she has had urine frequency because her lower extremities have been more swollen so she has been taking her Lasix as needed. She has been urinating more. She denied any dysuria or any urinary symptoms until she found out she had a urinary tract infection then she noticed that she's been having some discomfort in her suprapubic area. Patient is doing well this morning. She is very eager to get out of bed. Review of Systems Cardiovascular: COMPLAINS OF: Lower Extremity Edema Genitourinary: COMPLAINS OF: Urinary frequency Except as stated in HPI: all other systems reviewed are Neg Past Family Social History Past Medical History Hypertension Hyperlipidemia History DVT History of pulmonary emboli Leaky valve Past Surgical History Cholecystectomy Reported Medications Reported Meds & Active Scripts Active Reported Potassium Chloride ER (Potassium Chloride) 10 Meq Cap 10 Meq PO DAILY PRN Multi Vitamin Daily (Multiple Vitamin) 1 Tab Tab 1 Tab PO DAILY Calcium 500/Vitamin D3 (Calcium Carbonate-Cholecalciferol) Unknown Strength Tab Unknown Dose PO DAILY Simvastatin 20 Mg Tab 20 Mg PO HS Xarelto (Rivaroxaban) 20 Mg Tab 20 Mg PO HS Lasix (Furosemide) 20 Mg Tab 20 Mg PO DAILY PRN Lisinopril 10 Mg Tab 10 Mg PO DAILY Allergies: Coded Allergies: No Known Allergies (Verified Allergy, Unknown, 03/30/17) Family History Reviewed and rather unremarkable. Patient indicates that both mother and father were healthy without any history of any heart disease or diabetes Social History Patient denies any tobacco, alcohol or illicit drugs. Patient does indicate that she did smoke cigarettes for probably one year and when she found out she was she quit and never smoked again Physical Exam Vital Signs Vital Signs Date Time Temp Pulse Resp B/P (MAP) Pulse Ox O2 Delivery O2 Flow Rate FiO2 03/31/17 08:24 77 03/31/17 08:00 97.3 77 18 130/73 (92) 96 03/31/17 04:00 96.9 89 20 166/72 (103) 96 03/31/17 00:00 96.7 80 22 166/99 (121) 95 03/30/17 22:45 86 18 159/85 (109) 94 03/30/17 21:30 82 18 144/74 (97) 94 Room Air 03/30/17 20:15 85 18 135/79 (97) 93 03/30/17 19:00 83 18 162/84 (110) 94 Room Air 03/30/17 18:00 94 16 155/74 (101) 95 Room Air 03/30/17 17:00 98.2 87 16 142/97 (112) 95 Physical Exam GENERAL: Well-developed, well-nourished, in no acute distress. alert and orientated HEENT: Head is normocephalic without any lesions or masses noted. Facial features are symmetric. Eyes: Pupils equal round reactive to light. Extraocular muscles are intact. NECK: Supple without any masses. Trachea midline no deviation. CARDIAC: Regular rhythm, regular rate. S1/S2 are heard. No murmurs LUNGS: Clear to auscultation bilaterally. No wheeze, rhonchi or rales. No use of accessory muscles on inspiration or expiration. ABDOMEN: Soft, nontender. Nondistended. Bowel sounds heard in all 4 quadrants. Negative rebound, negative guarding EXTREMITIES: 2+ pitting edema, pulses are equal bilaterally. Patient does have obvious discoloration of the bilateral lower extremities with mild erythema from mid tibia down possible chronic venous stasis NEUROLOGY: Mood and affect appear appropriate. Cranial nerves II through XII grossly intact. moves all extremities Laboratory Laboratory Tests Test 03/30/17 17:20 03/30/17 19:50 03/31/17 06:40 White Blood Count 7.0 6.3 Red Blood Count 3.97 3.93 Hemoglobin 12.2 11.8 Hematocrit 36.9 36.7 Mean Corpuscular Volume 93.0 93.5 Mean Corpuscular Hemoglobin 30.7 30.0 Mean Corpuscular Hemoglobin Concent 33.0 32.1 Red Cell Distribution Width 13.6 13.5 Platelet Count 164 158 Mean Platelet Volume 7.9 8.6 Neutrophils (%) (Auto) 82.5 77.1 Lymphocytes (%) (Auto) 8.6 11.0 Monocytes (%) (Auto) 7.9 10.9 Eosinophils (%) (Auto) 0.3 0.5 Basophils (%) (Auto) 0.7 0.5 Neutrophils # (Auto) 5.8 4.9 Lymphocytes # (Auto) 0.6 0.7 Monocytes # (Auto) 0.6 0.7 Eosinophils # (Auto) 0.0 0.0 Basophils # (Auto) 0.0 0.0 CBC Comment DIFF FINAL DIFF FINAL Differential Comment Prothrombin Time 14.7 14.9 Prothromb Time International Ratio 1.5 1.5 Activated Partial Thromboplast Time 33.6 Blood Urea Nitrogen 23 18 Creatinine 0.73 0.68 Random Glucose 113 103 Calcium Level 9.0 8.6 Magnesium Level 2.0 Sodium Level 127 128 Potassium Level 4.0 3.9 Chloride Level 93 96 Carbon Dioxide Level 26.0 24.6 Anion Gap 8 7 Estimat Glomerular Filtration Rate 75 82 Troponin I 0.03 B-Type Natriuretic Peptide 591 Urine Color YELLOW Urine Turbidity MOD Urine pH 6.0 Urine Specific [place] 1.024 Urine Protein TRACE Urine Glucose (UA) NEG Urine Ketones 15 Urine Occult Blood LARGE Urine Nitrite NEG Urine Bilirubin NEG Urine Leukocyte Esterase SMALL Urine RBC 0-3 Urine WBC 9-14 Urine Squamous Epithelial Cells > 8 Urine Amorphous Sediment LARGE Urine Bacteria MOD Microscopic Urinalysis Comment CULTURE INDICATED Total Protein 7.2 Albumin 3.6 Alkaline Phosphatase 75 Aspartate Amino Transf (AST/SGOT) 32 Alanine Aminotransferase (ALT/SGPT) 29 Total Bilirubin 1.0 Date/Time Source Procedure Growth Status 03/30/17 17:20 Nasal Aspirate Influenza Types A,B Antigen (LISA) - Final NEGATIVE FOR FLU A AND B ANTIGEN.... Complete 03/30/17 19:50 Urine Clean Catch Urine Culture Pending Received Result Diagram: 03/31/17 0640 03/31/17 0640 Imaging Last Impressions Head CT 03/30/171655 Signed Impressions: Service Date/Time: Thursday, March 30, 2017 17:46 - CONCLUSION: No acute intracranial abnormality. Alex Akers MD Cervical Spine CT 03/30/171655 Signed Impressions: Service Date/Time: Thursday, March 30, 2017 17:46 - CONCLUSION: 1. No acute fracture or prevertebral soft tissue swelling. 2. Moderate bilateral foraminal narrowing from C2 through C7. 3. Grade I anterolisthesis of C4 in relation to C5 and C7 in relation to T1. 4. Diffuse cervical spondylosis. 5. Right pleural effusion. 6. 2 cm left thyroid nodule. MD Gloria Mcgeei VTE Risk Assessment Gloriai VTE Risk Assessment: Mod/High Risk (score >= 2) Caprini Risk Assessment Model Point Value = 1 Point Value = 2 Point Value = 3 Point Value = 5 Age 41-60 Minor surgery BMI > 25 kg/m2 Swollen legs Varicose veins or History of unexplained or recurrent spontaneous Oral contraceptives or hormone replacement Sepsis (< 1 month) Serious lung disease, including pneumonia (< 1 month) Abnormal pulmonary function Acute myocardial infarction Congestive heart failure (< 1 month) History of inflammatory bowel disease Medical patient at bed rest Age 61-74 Arthroscopic surgery Major open surgery (> 45 min) Laparoscopic surgery (> 45 min) Malignancy Confined to bed (> 72 hours) Immobilizing plaster cast Central venous access Age >= 75 History of VTE Family history of VTE Factor V Leiden Prothrombin [id number] Lupus anticoagulant Anticardiolipin antibodies Elevated serum homocysteine Heparin-induced thrombocytopenia Other congenital or acquired thrombophilia Stroke (< 1 month) Elective arthroplasty Hip, pelvis, or leg fracture Acute spinal cord injury (< 1 month) Prophylaxis Regimen Total Risk Factor Score Risk Level Prophylaxis Regimen 0-1 Low Early ambulation 2 Moderate Order ONE of the following: *Sequential Compression Device (SCD) *Heparin 5000 units SQ BID 3-4 Higher Order ONE of the following medications: *Heparin 5000 units SQ TID *Enoxaparin/Lovenox 40 mg SQ daily (WT < 150 kg, CrCl > 30 mL/min) *Enoxaparin/Lovenox 30 mg SQ daily (WT < 150 kg, CrCl > 10-29 mL/min) *Enoxaparin/Lovenox 30 mg SQ BID (WT < 150 kg, CrCl > 30 mL/min) AND/OR *Sequential Compression Device (SCD) 5 or more Highest Order ONE of the following medications: *Heparin 5000 units SQ TID (Preferred with Epidurals) *Enoxaparin/Lovenox 40 mg SQ daily (WT < 150 kg, CrCl > 30 mL/min) *Enoxaparin/Lovenox 30 mg SQ daily (WT < 150 kg, CrCl > 10-29 mL/min) *Enoxaparin/Lovenox 30 mg SQ BID (WT < 150 kg, CrCl > 30 mL/min) AND *Sequential Compression Device (SCD) Assessment and Plan Assessment and Plan Fall at home with progressive generalized weakness CT of the head and cervical spine do not indicate any acute abnormality Workup did indicate urinary tract infection Physical therapy was consulted who recommended the patient will require physical therapy at rehabilitation Urinary tract infection Patient has been started on Rocephin Monitor urine culture for appropriate antibiotics Elevated BNP, lower extremity edema Possible history of congestive heart failure Continue Lasix Obtain echocardiogram strict input and output History of DVT, pulmonary emboli, hyperlipidemia Home medications have been continued DVT prevention Patient is on Xarelto Discharge disposition: manager analysis consulted for rehabilitation placement. Discharge once arrangements made, appropriate antibiotics for her urinary tract infection and clinically improved This note was transcribed by reid Lorenz. I, Dr. Kacy Li personally performed the history, physical exam, and medical decision making; and confirmed the accuracy of the information in the transcribed note. Authenticated by Dr. Kacy Li on 03/31/17 at 11:33 Code Status No code Discussed Condition With Nursing staff, case management, patient Problem Qualifiers (1) UTI (urinary tract infection): Qualified Codes: N39.0 - Urinary tract infection, site not specified; R31.9 - Hematuria, unspecified Toy Lorenz Mar 31, 2017 11:42 Kacy Li MD Mar 31, 2017 16:16
[2017-03-31] MEDS: LISINOPRIL 10 MG TAB PO SCH (12:50)
--- NOTE | 2017-03-31 17:11 | ECHRPT ---
Indication: HEART FAILURE CONCLUSIONS Normal left ventricular size. Wall thickness is normal. The left ventricular systolic function is low normal with an estimated ejection fraction in the rang e of 50- 55%. The right ventricle is mildly dilated. The left atrial size is nnqvrgux-xs-nblgmksa dilated. The right atrial size is moderately dilated. Zgow-bw-bbarqtuq mitral valve regurgitation. Aortic valve sclerosis is present. Mild aortic valve regurgitation. There is moderate tricuspid regurgitation. The estimated pulmonary arterial pressure is 63.6 mmHg. A right sided pleural effusion is present. BP: 130 / 73 HR: 77 Rhythm: Atrial fibrillation, Atrial flut ter MEASUREMENTS (Male / Female) Normal Values Technical Quality:Fair 2D ECHO LV Diastolic Diameter PLAX 3.7 cm 4.2 - 5.9 / 3.9 - 5.3 cm LV Systolic Diameter PLAX 2.8 cm IVS Diastolic Thickness 0.9 cm 0.6 - 1.0 / 0.6 - 0.9 cm LVPW Diastolic Thickness 0.9 cm 0.6 - 1.0 / 0.6 - 0.9 cm LV Relative Wall Thickness 0.5 RV Internal Dim ED PLAX 3.5 cm LVOT Diameter 1.7 cm Aortic Root Diameter 3.0 cm LA Systolic Diameter LX 4.6 cm 3.0 - 4.0 / 2.7 - 3.8 cm M-MODE AV Cusp Separation MM 1.7 cm DOPPLER AV Peak Velocity 166.0 cm/s AV Peak Gradient 11.0 mmHg AV Mean Gradient 6.0 mmHg AV Velocity Time Integral 26.2 cm LVOT Peak Velocity 93.6 cm/s LVOT Peak Gradient 3.5 mmHg LVOT Velocity Time Integral 15.4 cm AV Area Cont Eq vti 1.3 cm AV Area Cont Eq pk 1.3 cm Mitral E Point Velocity 108.0 cm/s LV E' Lateral Velocity 9.1 cm/s Mitral E to LV E' Lateral Ratio 11.9 LV E' Septal Velocity 7.6 cm/s Mitral E to LV E' Septal Ratio 14.1 TR Peak Velocity 366.0 cm/s TR Peak Gradient 53.6 mmHg Right Atrial Pressure 10.0 mmHg Pulmonary Artery Systolic Pressu 63.6 mmHg Right Ventricular Systolic Press 63.6 mmHg PV Peak Velocity 69.6 cm/s PV Peak Gradient 1.9 mmHg FINDINGS LEFT VENTRICLE Normal left ventricular size. Wall thickness is normal. The left ventricular systolic function is low normal with an estimated ejection fraction in the rang e of 50- 55%. RIGHT VENTRICLE The right ventricle is mildly dilated. LEFT ATRIUM The left atrial size is jcdtqnba-ak-jyhscywl dilated. RIGHT ATRIUM The right atrial size is moderately dilated. ATRIAL SEPTUM No atrial level shunt is demonstrated by color flow Doppler interrogation. AORTA The aortic root and proximal ascending aorta are normal in size on limited imaging. MITRAL VALVE Hani-zf-hsdgxkwz mitral valve regurgitation. AORTIC VALVE Aortic valve sclerosis is present. Mild aortic valve regurgitation. TRICUSPID VALVE There is moderate tricuspid regurgitation. The estimated pulmonary arterial pressure is 63.6 mmHg. PULMONARY VALVE No pulmonary valve regurgitation or stenosis. VESSELS The inferior vena cava is normal in size. PERICARDIUM A right sided pleural effusion is present. No pericardial effusion. Rafi Garcia MD (Electronically Signed) Final Date:31 March 2017 17:10
[2017-03-31] MEDS: PRAVASTATIN SOD 40 MG TAB PO SCH (22:13)
[2017-03-31] MEDS: cefTRIAXone INJ 1,000 MG in SODIUM CHLORIDE 0.9% INJ 100 ML IV SCH (22:16)
[2017-03-31] MEDS: RIVAROXABAN 20 MG TAB PO SCH (22:16)
[2017-04-01] VITALS (7 sets, daily range): BP systolic 109–153; BP diastolic 51–89; PULSE 73–84; RESP 18–20; TEMP 96.5–98.8; O2SAT 95–98
--- NOTE | 2017-04-01 00:53 | EKG ---
Date Performed: 03/30/2017 Time Performed: 18:06:49 PTAGE: 86 years EKG: ATRIAL FIBRILLATION NON-SPECIFIC ST/T WAVE CHANGES ABNORMAL RHYTHM ECG PREVIOUS TRACING : 04/23/2006 08.31 Compared to prior tracing, now in AFib DOCTOR: Jai Carolina Interpretating Date/Time 04/01/2017 00:51:24
[2017-04-01] MEDS: DOCUSATE SODIUM 50 MG/SENNA 8.6 MG TAB PO SCH ×2 (10:21→20:40)
[2017-04-01] MEDS: LISINOPRIL 10 MG TAB PO SCH (10:21)
[2017-04-01] MEDS: FUROSEMIDE 20 MG TAB PO SCH (10:21)
[2017-04-01] MEDS: SODIUM CHLORIDE 0.9% FLUSH 10 ML FLUSH IV FLUSH SCH ×2 (10:22→20:40)
--- NOTE | 2017-04-01 15:44 | HHI.DS ---
Discharge Summary Admission Date Mar 30, 2017 at 20:43 Discharge Date: Apr 01, 2017 Admitting Diagnosis UTI, generalized weakness (1) Fall at home ICD Code: W19.XXXA - Unspecified fall, initial encounter; Y92.009 - Unspecified place in unspecified non-institutional (private) residence as the place of occurrence of the external cause Diagnosis: Principal (2) Generalized weakness ICD Code: R53.1 - Weakness Diagnosis: Principal (3) UTI (urinary tract infection) ICD Code: N39.0 - Urinary tract infection, site not specified Diagnosis: Principal Status: Acute Procedures none Brief History - From Admission Written by Toy Lorenz, acting as scribe for Dr. Li on 03/31/17 at 11: 33. 86-year-old rather pleasant female with known history of hypertension , hyperlipidemia, history of DVT, pulmonary emboli who presented to the hospital because of fall at home. Patient states that her the last 10 days she has been having trouble walking with weakness in her lower extremities. She is having difficulty getting out of bed because of her physical status. She did go to the bathroom yesterday and when she was walking out of the bathroom with her walker, the walker got hung up on the door and when she went to push the door she fell backwards. She denied any loss of consciousness, head injury. Patient indicates [facility] came and evaluated her and recommended bringing her to the hospital for further evaluation. Patient did have workup done emergency department and found to have urinary tract infection, elevated BNP, hyponatremia. Because of the findings is recommended patient be observed in the hospital for further recommendations. Patient indicates that she has had urine frequency because her lower extremities have been more swollen so she has been taking her Lasix as needed. She has been urinating more. She denied any dysuria or any urinary symptoms until she found out she had a urinary tract infection then she noticed that she's been having some discomfort in her suprapubic area. Patient is doing well this morning. She is very eager to get out of bed. CBC/BMP: 03/31/17 0640 03/31/17 0640 Significant Findings Laboratory Tests Test 03/30/17 17:20 03/30/17 19:50 03/31/17 06:40 Red Blood Count 3.97 MIL/MM3 (4.00-5.30) 3.93 MIL/MM3 (4.00-5.30) Neutrophils (%) (Auto) 82.5 % (16.0-70.0) 77.1 % (16.0-70.0) Lymphocytes (%) (Auto) 8.6 % (9.0-44.0) Lymphocytes # (Auto) 0.6 TH/MM3 (1.0-4.8) 0.7 TH/MM3 (1.0-4.8) Prothrombin Time 14.7 SEC (9.8-11.6) 14.9 SEC (9.8-11.6) Activated Partial Thromboplast Time 33.6 SEC (24.3-30.1) Blood Urea Nitrogen 23 MG/DL (7-18) Random Glucose 113 MG/DL (74-106) Sodium Level 127 MEQ/L (136-145) 128 MEQ/L (136-145) Chloride Level 93 MEQ/L (98-107) 96 MEQ/L (98-107) Estimat Glomerular Filtration Rate 75 ML/MIN (>89) 82 ML/MIN (>89) B-Type Natriuretic Peptide 591 PG/ML (0-100) Urine Turbidity MOD (CLEAR) Urine Ketones 15 mg/dL (NEG) Urine Occult Blood LARGE (NEG) Urine Leukocyte Esterase SMALL (NEG) Urine WBC 9-14 /hpf (0-5) Urine Squamous Epithelial Cells > 8 /hpf (0-5) Urine Bacteria MOD /hpf (NONE) Monocytes (%) (Auto) 10.9 % (0.0-8.0) Imaging Last Impressions Head CT 03/30/171655 Signed Impressions: Service Date/Time: Thursday, March 30, 2017 17:46 - CONCLUSION: No acute intracranial abnormality. Alex Akers MD Cervical Spine CT 03/30/171655 Signed Impressions: Service Date/Time: Thursday, March 30, 2017 17:46 - CONCLUSION: 1. No acute fracture or prevertebral soft tissue swelling. 2. Moderate bilateral foraminal narrowing from C2 through C7. 3. Grade I anterolisthesis of C4 in relation to C5 and C7 in relation to T1. 4. Diffuse cervical spondylosis. 5. Right pleural effusion. 6. 2 cm left thyroid nodule. Alex Akers MD Pt update on day of discharge Pt feeling well. Denies any CP/SOB/N/V States that she has difficulty getting to the bedside commode on time due to the lasix BID. Otherwise she did work w PT. She agreeable to going to rehab as she knows she needs to get stronger Hospital Course Pt was admitted for Fall at home with progressive generalized weakness CT of the head and cervical spine did not indicate any acute abnormality. Physical therapy was consulted and recommended the patient will require physical therapy at rehabilitation U/A was concerning for a Urinary tract infection however urine cx was neg. Pt did receive two doses of rocephin and this was stopped once urine cx resulted Elevated BNP, lower extremity edema ECHO showed EF 50-55% and aortic sclerosis w mod tricuspid regur. Pulm Art pressures were 63mmHg. I did discuss findings w Pt's general superintendent, Dr. Carolina , by phone. He would like her to f/u in his office. History of DVT, pulmonary emboli, hyperlipidemia Home medications have been continued Pt Condition on Discharge: Stable Discharge Disposition: Discharge to SNF Discharge Time: > 30 minutes Discharge Instructions DIET: Follow Instructions for: Heart Healthy Diet Activities you can perform: Regular-No Restrictions Follow up Referrals: Cardiology - 1 Month PCP Follow-up - 2 Weeks Continued Medications: Calcium Carbonate-Cholecalciferol (Calcium 500/Vitamin D3) Unknown Strength Tab Unknown Dose PO DAILY, TAB Furosemide (Lasix) 20 Mg Tab 20 MG PO DAILY PRN for edema, #30 TAB 0 Refills Lisinopril (Lisinopril) 10 Mg Tab 10 MG PO DAILY, #30 TAB 0 Refills Multiple Vitamin (Multi Vitamin Daily) 1 Tab Tab 1 TAB PO DAILY Potassium Chloride ER (Potassium Chloride ER) 10 Meq Cap 10 MEQ PO DAILY PRN for take with lasix, #30 CAP 0 Refills Rivaroxaban (Xarelto) 20 Mg Tab 20 MG PO HS for Blood Clot Prevention, TAB 0 Refills Simvastatin (Simvastatin) 20 Mg Tab 20 MG PO HS for Cholesterol Management, #30 TAB 0 Refills Kacy Li MD Apr 01, 2017 15:44
[2017-04-01] MEDS: cefTRIAXone INJ 1,000 MG in SODIUM CHLORIDE 0.9% INJ 100 ML IV SCH (20:39)
[2017-04-01] MEDS: RIVAROXABAN 20 MG TAB PO SCH (20:40)
[2017-04-01] MEDS: PRAVASTATIN SOD 40 MG TAB PO SCH (20:40)
[2017-04-02] VITALS: BP 121/60; PULSE 77; RESP 20; TEMP 98.2; O2SAT 97
[2017-04-02 05:32] VITALS: BP 136/63; PULSE 80; RESP 20; TEMP 96; O2SAT 96
[2017-04-02 08:00] VITALS: BP 128/76; PULSE 75; RESP 16; TEMP 96.9; O2SAT 95
[2017-04-02] MEDS: LISINOPRIL 10 MG TAB PO SCH (08:33)
[2017-04-02] MEDS: DOCUSATE SODIUM 50 MG/SENNA 8.6 MG TAB PO SCH (08:33)
[2017-04-02] MEDS: SODIUM CHLORIDE 0.9% FLUSH 10 ML FLUSH IV FLUSH SCH (08:33)
[2017-04-02] MEDS ORDERED: FUROSEMIDE 20 MG TAB PO SCH (09:00)
--- NOTE | 2017-04-02 13:26 | HHI.PR ---
Subjective Remarks Patient seen and examined today for follow-up on generalized weakness, possible urinary tract infection. Patient lying in bed comfortable. Denies any new complaints. Patient has been discharged to nursing facility once insurance company authorizes. Still awaiting authorization at this time. Objective Vital Signs Date Time Temp Pulse Resp B/P (MAP) Pulse Ox O2 Delivery O2 Flow Rate FiO2 04/02/17 08:00 96.9 75 16 128/76 (93) 95 04/02/17 05:32 96.0 80 20 136/63 (87) 96 04/02/17 00:00 98.2 77 20 121/60 (80) 97 04/01/17 20:00 98.8 82 20 109/51 (70) 96 04/01/17 16:00 98.0 84 18 132/79 (96) 97 I/O 04/01/17 04/01/17 04/01/17 04/02/17 04/02/17 04/02/17 07:00 15:00 23:00 07:00 15:00 23:00 Intake Total 120 ml 480 ml 120 ml Balance 120 ml 480 ml 120 ml Intake Oral 120 ml 480 ml 120 ml # Voids 7 1 2 4 # Bowel Movements 2 0 Result Diagram: 03/31/17 0640 03/31/17 0640 Imaging Last Impressions Head CT 03/30/171655 Signed Impressions: Service Date/Time: Thursday, March 30, 2017 17:46 - CONCLUSION: No acute intracranial abnormality. Alex Akers MD Cervical Spine CT 03/30/171655 Signed Impressions: Service Date/Time: Thursday, March 30, 2017 17:46 - CONCLUSION: 1. No acute fracture or prevertebral soft tissue swelling. 2. Moderate bilateral foraminal narrowing from C2 through C7. 3. Grade I anterolisthesis of C4 in relation to C5 and C7 in relation to T1. 4. Diffuse cervical spondylosis. 5. Right pleural effusion. 6. 2 cm left thyroid nodule. Alex Akers MD Objective Remarks GENERAL: Well-developed, well-nourished, in no acute distress. alert and orientated HEENT: Head is normocephalic without any lesions or masses noted. Facial features are symmetric. Eyes: Extraocular muscles are intact. Conjunctivae were clear. NECK: Supple without any masses. Trachea midline no deviation. No JVD, CARDIAC: Regular rhythm, regular rate. S1/S2 are heard. No murmurs gallops or rubs. LUNGS: Clear to auscultation bilaterally. No wheeze, rhonchi or rales. No use of accessory muscles on inspiration or expiration. ABDOMEN: Soft, nontender. Nondistended. Bowel sounds heard in all 4 quadrants. No organomegaly or masses. Negative rebound, negative guarding EXTREMITIES: No edema, pulses are equal bilaterally. No cyanosis or clubbing NEUROLOGY: Mood and affect appear appropriate. Cranial nerves II through XII grossly intact. Moving all extremities, speech is clear A/P Assessment and Plan Fall at home with progressive generalized weakness CT of the head and cervical spine do not indicate any acute abnormality Physical therapy was consulted who recommended the patient will require physical therapy at rehabilitation Urinary tract infection Patient has been started on Rocephin, antibiotics discontinued Urine culture indicated 50-100,000 mixed rick Elevated BNP, lower extremity edema Possible history of congestive heart failure Continue Lasix Echocardiogram indicated ejection fraction 50-55%, aortic valve sclerosis was present, patient with increased PA peak pressure indicating significant pulmonary hypertension strict input and output Pulmonary hypertension Case was discussed with 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 [place] and he recommended follow-up in his office upon discharge History of DVT, pulmonary emboli, hyperlipidemia Home medications have been continued DVT prevention Patient is on Xarelto Discharge Planning Discharge once arrangements made by case management with insurance approval Toy Lorenz Apr 02, 2017 13:25
== END 2017-04-02 12:44 ==
LOC: PHED 16:40 → PHEDA 20:43 → PH3A 22:59 → UNDODISOB 03-31 16:40
PROVIDERS: ADMIT Hospitalist; ATTEND Hospitalist
DX: R53.1 Weakness (principal); E87.1 Hypo-osmolality and hyponatremia; N39.0 Urinary tract infection, site not specified; I48.91 Unspecified atrial fibrillation; E78.00 Pure hypercholesterolemia, unspecified; I11.0 Hypertensive heart disease with heart failure; I50.9 Heart failure, unspecified; E78.5 Hyperlipidemia, unspecified; Y92.012 Bathroom of single-family (private) house as the place of occurrence of the external cause; R35.0 Frequency of micturition; Z86.718 Personal history of other venous thrombosis and embolism; Z86.711 Personal history of pulmonary embolism; Z79.01 Long term (current) use of anticoagulants; W18.39XA Other fall on same level, initial encounter
CPT/HCPCS: 70450; 72125; 80048; 80053; 81001; 83735; 83880; 84484; 85025; 85610; 85730; 87086; 87804; 93005; 93306; 96361; 96365; 97110; 97116; 97162; 99285; G0378; G8987; G8988; J0696; J7040